=== PATIENT | male | born 1960 | race Hispanic/Latino ===

== ENCOUNTER 2020-11-09 12:29 | Emergency (ER) | payer BC ==
[~2020-11-09] VITALS: Ht 175.3 cm; Wt 102.1 kg
[2020-11-09 12:51] VITALS: BP 112/76
[2020-11-09 14:41] LABS: HEMATOCRIT 29.3 % (42-54); MEAN CORPUSCULAR HEMOGLOBIN 28.9 pg (27.0-33.0); MEAN CORPUSCULAR HGB CONC 31.1 g/dL (32.0-36.0); PLATELET COUNT (AUTO) 291 K/uL (130-400); RED BLOOD CELL COUNT(AUTO) 3.15 MIL/uL (4.50-6.20); RED CELL DISTRIBUTION WIDTH 18.2 % (11.0-15.5); WHITE BLOOD COUNT (AUTO) 15.3 K/uL (4.8-10.8)
[2020-11-09] MEDS ORDERED: FAMOTIDINE 20MG TAB 20 MG TAB PO ONE (14:45)
[2020-11-09] MEDS ORDERED: ACETAMINOPHEN 325 MG TAB PO ONE (14:45)
[2020-11-09] MEDS ORDERED: LACTATED RINGERS 1000ML 1,000 ML IV ONE ×2 (14:45)
[2020-11-09] MEDS ORDERED: ONDANSETRON HCL 4 MG/2 ML VIAL IVP ONE (14:45)
[2020-11-09 14:47] LABS: CARBON DIOXIDE 21 mmol/L (21-32); CHLORIDE 102 mmol/L (101-111); CREATININE 1.7 mg/dL (0.5-1.5); GLOMERULAR FILTR. RATE CALC 44 mL/min (>60); GLUCOSE,RANDOM 103 mg/dL (70-105); POTASSIUM 4.3 mmol/L (3.5-5.1); SODIUM SERUM 136 mmol/L (136-145); UREA NITROGEN, BLOOD 26 mg/dL (7-18)
[2020-11-09 14:59] LABS: BAND NEUTROPHILS % (MANUAL) 18 % (0-2); LYMPHOCYTES % (MANUAL) 2 % (22-44); MAN.DIFF COMMENT-IMPRESSION MANUAL DIFFERENTIAL; MONOCYTES % (MANUAL) 13 % (2-9); SEGMENTED NEUTROPHILS % 67 % (40-70)
[2020-11-09 15:02] LABS: ALANINE AMINOTRANSFERASE 88 U/L (12-78); ALBUMIN 2.5 g/dL (3.5-5.0); ASPARTATE AMINOTRANSFERASE 261 U/L (10-37); BILIRUBIN,TOTAL 0.8 mg/dL (0.2-1.0); MYOGLOBIN 106 ng/mL (10-92); TOTAL PROTEIN, SERUM 6.9 g/dL (6.0-8.3); TROPONIN I < 0.04 ng/mL (0.00-0.06)
[2020-11-09 15:06] LABS: PROTHROMBIN TIME 36.2 SEC (9.6-11.6)
[2020-11-09 15:07] LABS: CREATINE KINASE, TOTAL 626 U/L (21-232); INR 3.74 (0.85-1.15)
[2020-11-09 16:52] VITALS: BP 197/74
[2020-11-09 18:21] VITALS: BP 127/77
[2020-11-15] MEDS ORDERED: [UNRECOGNIZED DRUG - OTHER] PO (10:27)
== END 2020-11-09 18:23 | disposition home or self-care (01) ==
LOC: EDH 12:29
DX: J90 Pleural effusion, not elsewhere classified (principal); C61 Malignant neoplasm of prostate; R74.8 Abnormal levels of other serum enzymes; D84.9 Immunodeficiency, unspecified; Z79.899 Other long term (current) drug therapy
CPT/HCPCS: 36415; 71045; 74150; 80053; 82150; 82550; 83690; 83735; 83874; 83880; 84484; 85025; 85610; 93005; 96361; 96374; 99285; J2405; J7120